=== PATIENT | female | born 1940 | race Caucasian/White ===

== ENCOUNTER 2019-08-30 08:51 | Emergency (ER) | payer MEDICARE, SELFPAY ==
--- NOTE | ~2019-08-30 | CT_ITS ---
EXAMINATION: CT abdomen pelvis w con DATE: 08/30/2019 10:01 INDICATION: Right lower quadrant abdominal pain. TECHNIQUE: Computed tomography (CT) of the abdomen and pelvis was performed with 100 mL Omnipaque 350 intravenous contrast. Automated exposure control and iterative reconstruction technique were employe d. The dose-length product was 710.46 mGy-cm. COMPARISON: None. FINDINGS: The visualized portions of the lung bases demonstrate mild atelectasis. No pleural effusion . The heart size is normal. No pericardial effusion. The liver is normal. There are changes of cholec ystectomy. Calcifications in the spleen are consistent with old granulomatous disease. The pancreas a nd adrenal glands are normal. There are cysts in the kidneys measuring up to 14 mm on the left. There are no dilated loops of bowel. The appendix is not visualized. There are changes of ventral hernia r epair. There are no pathologically enlarged lymph nodes. There is no free intraperitoneal fluid. Ther e is moderate lumbar spondylosis. IMPRESSION: 1. No etiology for the patient's symptoms. Reviewed, dictated and finalized at location A. UNICATION COORDINATOR
[2019-08-30 08:55] VITALS: BP 151/75; PULSE 91; RESP 18; TEMP 36.7; O2SAT 100
--- NOTE | 2019-08-30 09:05 | ED.ABDPAIN ---
HPI - Abdominal Pain General Chief Complaint: Abdominal Pain Stated Complaint: RLQ ABD PAIN [id number] Time Seen by Provider: 08/30/19 08:56 Source: patient and RN notes reviewed Mode of arrival: ambulatory Limitations: no limitations History of Present Illness HPI narrative: Pt is a 78 y/o female with a Hx of appendectomy, who presents to the ED with c/o constant RLQ pain starting 2 weeks ago. She notes that nothing in particular alleviates or aggravates her pain. Pt states that she was seen at an urgent care facility yesterday for her symptoms, and notes that she was found to have blood in her urine. She states that she was advised to come to the ED to receive a CT scan of her ABD/Pelvis. Pt notes that her pain was at a 7/10 last night. She currently denies any nausea, vomiting, diarrhea, fever, or chills. MD elicited complaint: abdominal pain Onset (ago): week(s) (2) Pain Consistency: constant Location: RLQ Pain scale (0-10): 7 Exacerbating factors: nothing Relieving factors: nothing Associated symptoms: hematuria Related Data Home Medications Medication Instructions Recorded Confirmed latanoprost 08/30/19 Allergies Allergy/AdvReac Type Severity Reaction Status Date / Time Cephalosporins Allergy Intermediate Unknown Verified 08/30/19 09:11 codeine Allergy Unknown Anaphylaxis Verified 08/30/19 09:11 Penicillins Allergy Unknown Hives Verified 08/30/19 09:11 CEFUROXIME AXETIL Allergy Unknown Unknown Uncoded 08/30/19 09:11 Review of Systems Review of Systems: All systems reviewed & are unremarkable except as noted in HPI and below Constitutional: Constitutional: Denies chills and Denies fever(s) Gastrointestinal: Gastrointestinal: Reports abdominal pain (RLQ pain), Denies diarrhea, Denies nausea and Denies vomiting Genitourinary: Genitourinary: Reports hematuria PMFSH Past Medical History Medical History Arthritis Back pain Basal cell carcinoma (BCC) Cataracts, bilateral Clavicle fracture Depression Right ovarian cyst Surgical History Surgical History Hx of appendectomy Hx of cataract surgery bilateral eyes Hx of ovarian cystectomy rt ovary Family History Family History (Updated 07/29/16 @ 23:19 by DOCTOR UNKNOWN) Mother Family history of malignant neoplasm Sibling Family history of diabetes mellitus in first degree relative Family history of heart disease in male family member before age 55 Patient's sister is Patient's brother is Father Family history of heart disease in male family member before age 55 Patient's father is Social History Social History Smoking status: Never smoker Alcohol intake: current Gender identity (if verbalized by the patient): Female Comments PCP is Dr. Howard. Exam Narrative: Exam Narrative: APPEARANCE: No acute distress, nontoxic, resting in bed EYES: EOMI HEENT: Normocephalic, atraumatic, OMM RESPIRATORY: No respiratory distress Clear to auscultation bilaterally with no rhonchi wheezing or rales. CARDIOVASCULAR: Regular rate and rhythm without murmurs rubs or gallops. ABDOMINAL: Soft, nontender, nondistended, no rebound or guarding MUSCULOSKELETAl: Moves all extremities. No clubbing, cyanosis or edema. NEURO: Awake and alert. Following commands, speech normal, no focal deficits SKIN:: Warm, dry. No rashes lesions or abrasions PSYCHIATRIC: Normal affect/mood, Course Course Emergency Course: . Repeat abdominal exam shows the patient's abdomen to be soft and nontender. Discussed with patient results of workup and diagnosis. Discussed need for follow-up with primary care physician, reasons to return to the emergency department in proper use of medication. Patient understands and agrees to current treatment plan Vital Signs Vital signs: Vital Signs Novelty
[2019-08-30 09:29] LABS: Basophils Absolute Auto 0.1 K/mm3 (0.0-0.1); Basophils Percent Auto 0.9 % (0.2-1.2); Eosinophils Absolute Auto 0.2 K/mm3 (0-0.3); Eosinophils Percent Auto 3.4 % (0-4.4); Hematocrit 39.5 % (37.0-47.0); Immature Granulocyte Absolute 0.02 K/mm3 (0.00-0.031); Immature Granulocyte Percent A 0.3 % (0-0.5); Lymphocytes Absolute Auto 1.84 K/mm3 (0.9-3.2); Lymphocytes Percent Auto 26.4 % (18.3-44.2); Mean Corpuscular HGB Conc 32.9 g/dl (32-36); Mean Corpuscular Hemoglobin 29.5 pg (26-34); Mean Corpuscular Volume 89.6 fl (80-100); Mean Platelet Volume 9.6 fl (7.4-10.4); Monocytes Absolute Auto 0.6 K/mm3 (0.1-0.6); Neutrophils Absolute Auto 4.2 K/mm3 (1.3-6.7); Platelet Count Result 256 k/mm3 (150-375); Red Blood Count 4.41 M/mm3 (4.2-5.4); Red Cell Distribution Width 12.3 % (11.5-14.5)
[2019-08-30 09:33] LABS: Add Urine Microscopic? YES; Appearance Urine Clear (Clear); Bacteria Urine Trace /hpf; Bilirubin Urine Negative (Negative); Blood Urine Negative (Negative); Color Urine Yellow (Yellow); Glucose Urine UA Negative (Negative); Ketones Urine Negative (Negative); Leukocyte Esterase Ur Trace LEU/UL (Negative); Mucus Urine Rare /lpf; Nitrate Urine Negative (Negative); Protein Urine Negative (Negative); RBC Urine 0-2 /hpf (0-2); Specific Grav Ur 1.014 (1.001-1.035); Squamous Epithelial Cell Urine Moderate /hpf (Few); Transitional Epi Cells Urine Rare /hpf (None Seen); Urobilinogen Urine Negative mg/dL (<2.0)
[2019-08-30 09:38] LABS: INR 0.9; Prothrombin Time 12.1 Seconds (11.1-14.7)
[2019-08-30 09:39] LABS: Partial Thromboplastin Time 28.6 SECONDS (22.3-36.8)
[2019-08-30 09:48] LABS: Alanine Aminotransferase 29 U/L (4-35); Alkaline Phosphatase 110 U/L (38-126); Aspartate Amino Transferase 26 U/L (14-36); Bilirubin,Total 0.2 mg/dL (0.2-1.3); Blood Urea Nitrogen 15 mg/dL (7-17); Carbon Dioxide 22 mmol/L (22-30); Chloride 102 mmol/L (98-107); Estimated CRCL calculation 61 ml/min; Estimated Glomerular Filt Rate > 60; Glucose 156 mg/dL (65-105); Lipase 65 U/L (23-300); Sodium 140 mmol/L (137-145)
[2019-08-30 09:53] LABS: Blood Urea Nitrogen 15 mg/dL (8-26); Estimated CRCL calculation 53 ml/min; Estimated Glomerular Filt Rate > 60
[2019-08-30 10:02] LABS: Potassium 3.9 mmol/L (3.4-5.0)
[2019-08-30 10:50] VITALS: BP 139/87; PULSE 80; RESP 20; O2SAT 98
== END 2019-08-30 10:55 | disposition home or self-care (01) ==
PROVIDERS: Emergency Provider Emergency Medicine; PCP Internal Medicine
DX: N39.0 Urinary tract infection, site not specified (principal); M19.90 Unspecified osteoarthritis, unspecified site; Z85.828 Personal history of other malignant neoplasm of skin; Z98.42 Cataract extraction status, left eye; Z98.41 Cataract extraction status, right eye
CPT/HCPCS: 36415; 74177; 80053; 81001; 83690; 85025; 85610; 85730; 99284; Q9967

== ENCOUNTER 2022-01-21 15:00 | Emergency (ER) | payer MEDICARE, SELFPAY ==
[2022-01-21 15:05] VITALS: BP 165/90; PULSE 82; RESP 16; TEMP 36.8; O2SAT 99
--- NOTE | 2022-01-21 15:11 | ED.EAR ---
HPI - Ear Problem General Chief complaint: Ear Stated complaint: Ears plugged up Time Seen by Provider: 01/21/22 15:11 Source: patient and RN notes reviewed History of Present Illness HPI Narrative: Patient is a 81-year-old female presents the urgent care with complaints of bilateral ear clogged. Patient states its worse on the right. Patient states its been ongoing since Wednesday after she had a COVID and a lot of nasal congestion. Patient has been using an old antibiotic drops to the ears that she got from the ENT. Currently denies of any other upper respiratory complaints, fever, nausea or vomiting. Denies of any ear pain. No acute distress noted. Patient aware of the plan of care Some parts of this dictation were generated by voice recognition software and may contain typographical and/or grammatical inaccuracies. Related Data Allergies Allergy/AdvReac Type Severity Reaction Status Date / Time Cephalosporins Allergy Intermediate Unknown Verified 01/21/22 15:14 codeine Allergy Unknown Anaphylaxis Verified 01/21/22 15:14 Penicillins Allergy Unknown Hives Verified 01/21/22 15:14 CEFUROXIME AXETIL Allergy Unknown Unknown Uncoded 08/30/19 09:11 Review of Systems Review of Systems: CONSTITUTIONAL: Denies fever, chills, or sweats. EYES: Denies visual changes, redness, or discharge. ENT: Denies rhinorrhea, congestion, sore throat. Reports of bilateral ears clogged CARDIOVASCULAR: Denies chest pain, palpitations, or edema. RESPIRATORY: Denies cough or dyspnea. GASTROINTESTINAL: Denies abdominal pain, nausea, vomiting, or diarrhea. GENITOURINARY: Denies dysuria or hematuria. SKIN: Denies rash or itching. MUSCULOSKELETAL: Denies back pain, joint pain, or myalgia. NEUROLOGIC: Denies headache, numbness, or weakness. All other systems reviewed are negative, except as documented in HPI. [facility] Past Medical History Medical History (Updated 01/21/22 @ 16:04 by BAYLEE Hoffman) Arthritis Back pain Basal cell carcinoma (BCC) Cataracts, bilateral Clavicle fracture Depression Right ovarian cyst Surgical History Surgical History Hx of appendectomy Hx of cataract surgery bilateral eyes Hx of ovarian cystectomy rt ovary Family History Family History (Updated 02/14/16 @ 23:19 by DOCTOR UNKNOWN) Mother Family history of malignant neoplasm Sibling Family history of diabetes mellitus in first degree relative Family history of heart disease in male family member before age 55 Patient's sister is Patient's brother is Father Family history of heart disease in male family member before age 55 Patient's father is Social History Social History Smoking status: Never smoker Alcohol intake: current Gender identity (if verbalized by the patient): Female Comments At the time of my signature, I reviewed and agree with the nursing past medical, surgical, social, and family history. There is no relevant family history pertinent to the patient complaint. Exam Narrative: GENERAL: This is a well-nourished, well-developed patient, in no apparent distress. HEAD: normocephalic, atraumatic. EYES: PERRL. Sclera clear/white. Vision is grossly intact. EARS: External ears normal, auditory canals clear and without drainage, unable to visualize bilateral TMs due to cerumen impaction. Hearing grossly intact. NOSE: External nose normal with no obvious nasal discharge, nares without redness, no rhinorrhea. THROAT: Mucous membranes moist NECK: Neck supple CARDIOVASCULAR: Regular rate and rhythm without murmurs, gallops, or rubs. RESPIRATORY: Clear to auscultation. Breath sounds equal bilaterally. No wheezes, rales, or rhonchi. SKIN: warm, intact with no suspicious lesions or rash, good texture and turgor. NEURO: awake, alert, and oriented to person, place and time. There were no obvio
== END 2022-01-21 16:06 | disposition home or self-care (01) ==
PROVIDERS: Emergency Provider Nurse Practitioner Family; PCP Internal Medicine
DX: H61.23 Impacted cerumen, bilateral (principal)
CPT/HCPCS: 69210; 99213; G0463

== ENCOUNTER 2022-04-01 11:23 | Day surgery (SDC) | payer MEDICARE, SELFPAY ==
[2022-03-27 10:06] VITALS: BMI 29.5
--- NOTE | 2022-03-31 07:39 | PM.HPGS ---
History of Present Illness History of Present Illness Consent: Risks, benefits, and alternatives have been discussed and questions answered. Patient agrees to proceed with procedure. Chief complaint: Dysphagia Narrative: Francis Carlos is a 81 year old female with dysphagia. She will feel as though something is caught in lower chest, usually after a meal. Review of Systems Review of Systems: All systems reviewed & are unremarkable except as noted in HPI and below PMFSH Past Medical History Medical History Arthritis Back pain Basal cell carcinoma (BCC) Cataracts, bilateral Clavicle fracture Depression Right ovarian cyst Surgical History Surgical History Hx of appendectomy Hx of cataract surgery bilateral eyes Hx of ovarian cystectomy rt ovary Family History Family History Mother Family history of malignant neoplasm Sibling Family history of diabetes mellitus in first degree relative Family history of heart disease in male family member before age 55 Patient's sister is Patient's brother is Father Family history of heart disease in male family member before age 55 Patient's father is Social History Social History Smoking status: Never smoker Alcohol intake: current Drinks per week: 1 Alcohol use details: OCCASIONAL GLASS OF WINE Substance use: never Substance use type: does not use Living arrangements: alone Gender identity (if verbalized by the patient): Female Spiritual care concerns: No Meds Home Medications and Allergies Home Medications Medication Instructions Recorded Confirmed Type latanoprost 0.005 % eye drops 1 drp EACH EYE HS 03/27/22 04/01/22 History Allergies Allergy/AdvReac Type Severity Reaction Status Date / Time codeine Allergy Unknown Anaphylaxis Verified 04/01/22 11:53 Penicillins Allergy Unknown Hives Verified 04/01/22 11:53 Exam Const: General: alert Orientation/consciousness: patient oriented x3 Resp: Auscultation: clear to auscultation bilaterally Cardio: Rhythm: regular rhythm GI: GI Palp: Yes Soft to palpation and No Tenderness to palpation present (GI) Neuro: General: patient oriented x3 Assessment and Plan Assessment and plan (1) Dysphagia: Code(s): R13.10 - Dysphagia, unspecified Status: Acute Assessment and Plan: EGD with possible biopsy or dilatation or cautery.
[2022-04-01 11:45] VITALS: BP 149/77; PULSE 88; RESP 20; TEMP 37.1; O2SAT 98
[2022-04-01] MEDS: LACTATED RINGERS 1,000 ML 150 ML IV CONT (11:50)
--- NOTE | 2022-04-01 12:35 | WPDANESEPPF ---
Anes - Initial Pre Proc Eval Procedure: Operation Date: 04/01/22 13:00 Proposed Procedures p Esophagogastroduodenoscopy - Talat Francis MD Date/Time: 04/01/22 12:35 Surgeon: Talat Francis MD Pre Op Diagnosis: Dysphagia Patient Data Age: 81 Gender: F Height: 1.52 m Weight: 68.5 kg Last Vital Signs Temp 37.1 C 04/01/22 11:45 Pulse 88 04/01/22 11:45 Resp 20 04/01/22 11:45 BP 149/77 H 04/01/22 11:45 Pulse Ox 98 04/01/22 11:45 O2 Del Method Room Air 04/01/22 11:45 Allergies Allergy/AdvReac Type Severity Reaction Status Date / Time codeine Allergy Unknown Anaphylaxis Verified 04/01/22 11:53 Penicillins Allergy Unknown Hives Verified 04/01/22 11:53 Home Medications Medication Instructions Recorded Confirmed Type latanoprost 0.005 % eye drops 1 drp EACH EYE HS 03/27/22 04/01/22 History Patient hx anesthesia problems: none Family hx anesthesia problems: none Results Review: All pre-operative results and documents have been reviewed as part of the pre-operative evaluation. [facility] Past Medical History Medical History Arthritis Back pain Basal cell carcinoma (BCC) Cataracts, bilateral Clavicle fracture Depression Right ovarian cyst Surgical History Surgical History Hx of appendectomy Hx of cataract surgery bilateral eyes Hx of ovarian cystectomy rt ovary Family History Family History Mother Family history of malignant neoplasm Sibling Family history of diabetes mellitus in first degree relative Family history of heart disease in male family member before age 55 Patient's sister is Patient's brother is Father Family history of heart disease in male family member before age 55 Patient's father is Social History Social History Smoking status: Never smoker Alcohol intake: current Drinks per week: 1 Alcohol use details: OCCASIONAL GLASS OF WINE Substance use: never Substance use type: does not use Living arrangements: alone Gender identity (if verbalized by the patient): Female Spiritual care concerns: No Anes - Eval Final PreProcedure Day of Procedure 04/01/22 12:35 Patient weight: overweight Heart: regular rate and rhythm Lungs: clear to auscultation Airway: Mallampati scale class II Neurological: alert and oriented Last oral intake: >/= 8 hours ASA classification: II Emergent: no Anesthetic plan: proceed Anesthesia type and monitoring: general GIVS and standard monitoring Results Review: All pre-operative results and documents have been reviewed as part of the pre-operative evaluation. Informed Consent: The patient's anesthetic plan and its attendant risks and benefits were discussed with the patient/family/POA. Questions were solicited and answers provided to the satisfaction of the patient/family/POA.
--- NOTE | 2022-04-01 13:15 | SUR.OPER ---
BALLOON DILATION TO ESOPHAGUS 12-15MM
[2022-04-01 13:16] VITALS: BP 127/64; PULSE 81; RESP 18; O2SAT 97
[2022-04-01 13:26] VITALS: BP 120/58; PULSE 76; RESP 20; O2SAT 97
--- NOTE | 2022-04-01 13:30 | WPDANESPN ---
Anes - Prog Note Post-Op Date/Time: 04/01/22 13:30 Cardiovascular status: normal Respiratory status: normal Airway patency: baseline Mental status: baseline Post-Op hydration status: normal Vital Signs: Last Vital Signs Temp 37.1 C 04/01/22 11:45 Pulse 88 04/01/22 11:45 Resp 20 04/01/22 11:45 BP 149/77 H 04/01/22 11:45 Pulse Ox 98 04/01/22 11:45 O2 Del Method Room Air 04/01/22 11:45 Pain Score (VAS): 0 Patient Feedback: Patient satisfied with anesthetic care.
[2022-04-01 13:36] VITALS: BP 144/80; PULSE 80; RESP 20; O2SAT 97
== END 2022-04-01 13:58 | disposition home or self-care (01) ==
PROVIDERS: PCP Internal Medicine; Visit Provider Internal Medicine Gastroenterology
PROC: 0DJ08ZZ Inspection of Upper Intestinal Tract, Via Natural or Artificial Opening Endoscopic (ICD-10-PCS; CPT 43235; principal; 2022-04-01 13:00)
DX: R13.10 Dysphagia, unspecified (principal)
CPT/HCPCS: 43249; 43239

== ENCOUNTER 2022-04-01 13:00 | Outpatient (NON) | payer MEDICARE, SELFPAY | END 2022-04-01 13:01 | disposition home or self-care (01) | LOC: ANHLAB 04-02 08:16 | PROVIDERS: PCP Internal Medicine; Visit Provider Internal Medicine Gastroenterology | DX: R13.10 Dysphagia, unspecified (principal) | CPT/HCPCS: 88305 ==

== ENCOUNTER 2022-07-17 18:03 | Emergency (ER) | payer MEDICARE, SELFPAY ==
[2022-07-17] VITALS (14 sets, daily range): BP systolic 131–160; BP diastolic 74–95; PULSE 77–102; RESP 12–24; TEMP 36.7; O2SAT 96–98
--- NOTE | ~2022-07-17 | XR_ITS ---
EXAMINATION: XR chest 2V DATE: 07/17/2022 18:36 INDICATION: Shortness of breath. TECHNIQUE: Frontal and lateral views of the chest were obtained. COMPARISON: Chest single view 03/27/2017, CT abdomen and pelvis 08/30/2019 FINDINGS: A calcified left lung nodule and calcified left hilar lymph nodes are consistent with old g ranulomatous disease. No pleural effusion or pneumothorax. The heart size is normal. There are surgic al clips in the abdomen. IMPRESSION: 1. No acute cardiopulmonary disease. Reviewed, dictated and finalized at location A. L CASINO FLOORPERSON
--- NOTE | 2022-07-17 18:09 | ECG_ITS ---
Measurements Intervals [place] Rate: 101 P: 43 MN: 138 QRS: -26 QRSD: 81 T: 47 QT: 345 QTc: 448 Interpretive Statements SINUS TACHYCARDIA LEFT AXIS DEVIATION [QRS AXIS < -20] ABNORMAL RHYTHM ECG NO PREVIOUS ECG AVAILABLE FOR COMPARISON Electronically Signed On 07-18-2022 9:43:14 LINEN TECH by John Reno M.D.
[2022-07-17 18:26] LABS: Basophils Absolute Auto 0.1 K/mm3 (0.0-0.1); Basophils Percent Auto 0.6 % (0.2-1.2); Eosinophils Absolute Auto 0.2 K/mm3 (0-0.3); Eosinophils Percent Auto 1.6 % (0-4.4); Hematocrit 41.7 % (37.0-47.0); Hemoglobin 13.7 g/dL (12.0-15.0); Immature Granulocyte Absolute 0.03 K/mm3 (0.00-0.031); Immature Granulocyte Percent A 0.3 % (0-0.5); Lymphocytes Absolute Auto 1.75 K/mm3 (0.9-3.2); Lymphocytes Percent Auto 18.9 % (18.3-44.2); Mean Corpuscular HGB Conc 32.9 g/dl (32-36); Mean Corpuscular Hemoglobin 30.2 pg (26-34); Mean Corpuscular Volume 92.1 fl (80-100); Mean Platelet Volume 9.6 fl (7.4-10.4); Monocytes Absolute Auto 0.8 K/mm3 (0.1-0.6); Monocytes Percent Auto 8.9 % (2.6-8.5); Neutrophils Absolute Auto 6.4 K/mm3 (1.3-6.7); Neutrophils Percent Auto 69.7 % (45.5-73.1); Platelet Count Result 278 k/mm3 (150-375); Red Blood Count 4.53 M/mm3 (4.2-5.4); Red Cell Distribution Width 12.7 % (11.5-14.5); White Blood Count 9.3 K/mm3 (4.5-10.0)
[2022-07-17 18:35] LABS: Alanine Aminotransferase 27 U/L (6-35); Albumin Level 4.3 g/dL (3.5-5.1); Alkaline Phosphatase 98 U/L (38-126); Anion Gap 6 mmol/L (8-16); Aspartate Amino Transferase 26 U/L (14-36); Bilirubin,Total 0.2 mg/dL (0.2-1.3); Blood Urea Nitrogen 17 mg/dL (7-17); Calcium 8.9 mg/dL (8.4-10.2); Carbon Dioxide 28 mmol/L (22-30); Chloride 103 mmol/L (98-107); Estimated CRCL calculation 46 ml/min; Estimated Glomerular Filt Rate > 60; Glucose 128 mg/dL (65-110); Sodium 137 mmol/L (137-145)
--- NOTE | 2022-07-17 19:59 | ED.SOB ---
HPI - SOB/Dyspnea General Chief Complaint: Shortness of Breath/Dyspnea Stated Complaint: SOB Time Seen by Provider: 07/17/22 19:24 Source: patient and RN notes reviewed Mode of arrival: ambulatory Limitations: no limitations History of Present Illness HPI Narrative: This is a 81 year old female who presents for evaluation of shortness of breath. Patient states [facility] when she felt short of breath. She also reports she was lightheaded for a short period. Her lightheadedness resolved . She was still short of breath when she checked out at [facility] so she went to urgent care. Urgent care referred patient to ER. Her shortness of breath has resolved but she wanted to make sure she is not having a heart problem. She denies heart disease or lung disease. She denies associated chest pain, leg swelling, nausea or vomiting. She reports intermittent mild dry cough for 1 week but she states it is not significant. She reports her in February so she may just be stressed. MD elicited complaint: shortness of breath Related Data Home Medications Medication Instructions Recorded Confirmed latanoprost 0.005 % eye drops 1 drp EACH EYE HS 03/27/22 04/02/22 Allergies Allergy/AdvReac Type Severity Reaction Status Date / Time codeine Allergy Unknown Anaphylaxis Verified 04/02/22 10:02 Penicillins Allergy Unknown Hives Verified 04/02/22 10:02 Review of Systems Constitutional: Constitutional: Denies weakness ENT: Reports nasal congestion (chronic) Cardiovascular: Cardiovascular: Denies syncope, Denies rapid heart rate, Denies irregular heart rhythm, Denies leg edema and Reports dyspnea Respiratory: Respiratory: Denies chest congestion, Reports cough, Denies hemoptysis, Denies excessive phlegm production and Reports dyspnea Gastrointestinal: Gastrointestinal: Denies abdominal pain, Denies hematochezia, Denies diarrhea and Denies vomiting Genitourinary: Genitourinary: Denies hematuria and Denies dysuria Musculoskeletal: Musculoskeletal: Denies joint swelling, Denies loss of height and Denies muscle weakness Neurologic: Denies syncope, Denies focal weakness and Denies weakness [facility] Past Medical History Medical History (Updated 07/18/22 @ 00:00 by Wiliam Hooks) Arthritis Back pain Basal cell carcinoma (BCC) Cataracts, bilateral Clavicle fracture Depression Right ovarian cyst Surgical History Surgical History Hx of appendectomy Hx of cataract surgery bilateral eyes Hx of ovarian cystectomy rt ovary Family History Family History Mother Family history of malignant neoplasm Sibling Family history of diabetes mellitus in first degree relative Family history of heart disease in male family member before age 55 Patient's sister is Patient's brother is Father Family history of heart disease in male family member before age 55 Patient's father is Hypertension Heart disease Social History Social History Smoking status: Never smoker Alcohol intake: current Drinks per week: 1 Alcohol use details: OCCASIONAL GLASS OF WINE Substance use: never Substance use type: does not use Gender identity (if verbalized by the patient): Female Spiritual care concerns: No Exam Const: General: healthy appearing and alert Nutritional Appearance: well nourished Orientation/consciousness: patient oriented x3 HENMT: Head: normal to inspection Face and sinus: normal facial exam Throat: posterior oropharynx normal Eyes: EOM: EOMs intact bilaterally Neck: Neck: normal visual inspection Chest: Chest palpation & inspection: normal inspection of the chest Resp: Effort & Inspection: normal respiratory effort Auscultation: clear to auscultation bilaterally Cardio:
[2022-07-17 20:24] LABS: Prothrombin Time 13.1 Seconds (11.1-14.7)
[2022-07-17 20:25] LABS: Partial Thromboplastin Time 27.8 SECONDS (22.3-36.8)
[2022-07-17 20:33] LABS: NT Pro B Type Natriuretic Pept 85 pg/mL (5-100); Troponin I < 0.012 ng/mL (0.000-0.034)
[2022-07-17 20:40] LABS: D Dimer 0.45 ug/mL (<0.48)
[2022-07-17 20:47] LABS: SARS-CoV-2 RNA PCR Negative
== END 2022-07-17 21:15 | disposition home or self-care (01) ==
PROVIDERS: Emergency Medicine; Emergency Provider General Practice; PCP Internal Medicine
DX: R06.00 Dyspnea, unspecified (principal); Z20.822 Contact with and (suspected) exposure to COVID-19; M19.90 Unspecified osteoarthritis, unspecified site; Z85.828 Personal history of other malignant neoplasm of skin; Z98.42 Cataract extraction status, left eye; Z98.41 Cataract extraction status, right eye; R00.0 Tachycardia, unspecified
CPT/HCPCS: 36415; 71046; 80053; 83880; 84484; 85025; 85380; 85610; 85730; 93005; 99284; U0003; U0005

== ENCOUNTER 2023-04-19 19:22 | Emergency (ER) | payer MEDICARE, SELFPAY ==
[2023-04-19 19:28] VITALS: BP 134/72; PULSE 99; RESP 20; TEMP 37.8; O2SAT 98
--- NOTE | 2023-04-19 19:35 | ED.URI ---
HPI - URI/Sore Throat General Chief Complaint: Upper Respiratory Infection Stated Complaint: Congestion nose and throat History of Present Illness HPI Narrative: PATIENT PRESENTS WITH A 1 DAY HISTORY OF NASAL CONGESTION RUNNY NOSE AND COUGH. NO FEVER NO SHORTNESS OF BREATH NO CHEST PAIN. PATIENT REPORTS GENERALIZED BODY ACHES AND MALAISE. PATIENT IS ON CLINDAMYCIN FOR HER TOOTH INFECTION AND HAS BEEN TAKING FOR THE PAST 3 DAYS. PATIENT REPORTS SHE RECENTLY RETURNED FROM A VACATION TO [place] AND HER SYMPTOMS STARTED SHORTLY AFTER. GOOD P.O. INTAKE NORMAL URINATION Related Data Home Medications Medication Instructions Recorded Confirmed No Home Medications 04/19/23 04/19/23 Allergies Allergy/AdvReac Type Severity Reaction Status Date / Time codeine Allergy Unknown Anaphylaxis Verified 04/19/23 19:33 Penicillins Allergy Unknown Hives Verified 04/19/23 19:33 Review of Systems Review of Systems: CONSTITUTIONAL: DENIES CHILLS, OR SWEATS. REPORTS FEVER AND GENERALIZED BODY ACHES EYES: DENIES VISUAL CHANGES, REDNESS, OR DISCHARGE. ENT: DENIES OTALGIA. REPORTS NASAL CONGESTION RUNNY NOSE AND SORE THROAT CARDIOVASCULAR: DENIES CHEST PAIN, PALPITATIONS, OR EDEMA. RESPIRATORY: DENIES DYSPNEA. REPORTS OCCASIONAL COUGH GASTROINTESTINAL: DENIES ABDOMINAL PAIN, NAUSEA, VOMITING, OR DIARRHEA. GENITOURINARY: DENIES DYSURIA OR HEMATURIA. SKIN: DENIES RASH OR ITCHING. MUSCULOSKELETAL: DENIES BACK PAIN, JOINT PAIN, OR MYALGIA. REPORTS GENERALIZED BODY ACHES NEUROLOGIC: DENIES HEADACHE, NUMBNESS, OR WEAKNESS. PSYCHIATRIC: DENIES ANXIETY OR DEPRESSION. [facility] Past Medical History Medical History (Updated 04/19/23 @ 19:41 by BAYLEE Lin) Arthritis Back pain Basal cell carcinoma (BCC) Cataracts, bilateral Clavicle fracture Depression Right ovarian cyst Surgical History Surgical History Hx of appendectomy Hx of cataract surgery bilateral eyes Hx of ovarian cystectomy rt ovary Family History Family History Mother Family history of malignant neoplasm Sibling Family history of diabetes mellitus in first degree relative Family history of heart disease in male family member before age 55 Patient's sister is Patient's brother is Father Family history of heart disease in male family member before age 55 Patient's father is Hypertension Heart disease Social History Social History Smoking status: Never smoker Alcohol intake: current Drinks per week: 1 Alcohol use details: OCCASIONAL GLASS OF WINE Substance use: never Substance use type: does not use Living arrangements: alone Gender identity (if verbalized by the patient): Female Spiritual care concerns: No Comments AT TIME OF SIGNATURE, AGREE WITH NURSING PAST MEDICAL, SURGICAL, SOCIAL AND FAMILY HISTORY. THERE IS NO RELEVANT FAMILY HISTORY PERTINENT TO THE PRESENTING COMPLAINT Exam Narrative: THE PATIENT IS A WELL-DEVELOPED, WELL-NOURISHED IN NO ACUTE DISTRESS. SKIN: SKIN IS WARM AND DRY WITHOUT ERYTHEMA, SWELLING OR EXUDATE. THERE IS GOOD TURGOR. NO TENTING. HEAD: ATRAUMATIC. NORMOCEPHALIC. NO TEMPORAL OR SCALP TENDERNESS. EYES: MOIST AND BRIGHT. SCLERA AND CONJUNCTIVAE NORMAL. NO DISCHARGE. PERRLA. EXTRAOCULAR MOTIONS INTACT. GROSS VISUAL ACUITY INTACT. EARS: PINNA IS NORMAL SHAPE AND CONTOUR. CLEAR EXTERNAL AUDITORY CANALS. TM PEARLY MILLER WITH GOOD CONE OF LIGHT, NO ERYTHEMA OR SUPPURATION. BILATERAL CERUMEN NOTED NO GROSS HEARING DEFICIT. NOSE: PINK, MOIST MUCOSA WITH GOOD AIR MOVEMENT. CLEAR RHINORRHEA WITHOUT NASAL FLARING. SEPTUM MIDLINE. MOUTH: MOIST MUCOUS MEMBRANES. THROAT; MILD ERYTHEMA NOTED TO POSTERIOR OROPHARYNX WITH MODERATE POSTNASAL DRAINAGE. WITHOUT EXUDATE OR ULCERATION.. UVULA MIDLINE. SE
== END 2023-04-19 19:43 | disposition home or self-care (01) ==
PROVIDERS: Emergency Provider Nurse Practitioner Family; PCP Internal Medicine
DX: U07.1 COVID-19 (principal); J06.9 Acute upper respiratory infection, unspecified; Z85.828 Personal history of other malignant neoplasm of skin
CPT/HCPCS: 87426; 99213; C9803; G0463

== ENCOUNTER 2023-05-05 00:59 | Emergency (ER) | payer MEDICARE, SELFPAY ==
--- NOTE | ~2023-05-05 | XR_ITS ---
Portable chest x-ray Comparison: 07/17/2022 Clinical History: Palpitations Findings: Lungs are clear, without focal consolidation or pleural effusion. Cardiomediastinal silho uette is stable. Bones and soft tissues are unremarkable. Impression: Clear lungs. Reviewed, dictated and finalized at location . Impression: Clear lungs.
[2023-05-05 01:05] VITALS: BP 134/89; PULSE 112; RESP 20; TEMP 37.1; O2SAT 96
--- NOTE | 2023-05-05 01:08 | ECG_ITS ---
Measurements Intervals [place] Rate: 109 P: 33 AK: 135 QRS: -30 QRSD: 79 T: 35 QT: 330 QTc: 445 Interpretive Statements SINUS TACHYCARDIA WITH OCCASIONAL VENTRICULAR PREMATURE COMPLEXES BORDERLINE LEFT AXIS DEVIATION [QRS AXIS < -20] ABNORMAL ECG COMPARED TO ECG 07/17/2022 18:14:53 NO SIGNIFICANT CHANGES Electronically Signed On 05-05-2023 9:03:47 CDT by Reinier Grimes M.D.
[2023-05-05 01:51] VITALS: PULSE 109
[2023-05-05 02:37] VITALS: BP 147/75; PULSE 101; RESP 19; O2SAT 97
[2023-05-05 03:39] LABS: Basophils Absolute Auto 0.1 K/mm3 (0.0-0.1); Basophils Percent Auto 0.6 % (0.2-1.2); Eosinophils Absolute Auto 0.1 K/mm3 (0-0.3); Eosinophils Percent Auto 1.4 % (0-4.4); Hematocrit 42.6 % (37.0-47.0); Hemoglobin 13.7 g/dL (12.0-15.0); Immature Granulocyte Absolute 0.05 K/mm3 (0.00-0.031); Immature Granulocyte Percent A 0.5 % (0-0.5); Lymphocytes Absolute Auto 2.11 K/mm3 (0.9-3.2); Lymphocytes Percent Auto 22.5 % (18.3-44.2); Mean Corpuscular HGB Conc 32.2 g/dl (32-36); Mean Corpuscular Hemoglobin 29.5 pg (26-34); Mean Corpuscular Volume 91.6 fl (80-100); Mean Platelet Volume 9.7 fl (7.4-10.4); Monocytes Absolute Auto 0.9 K/mm3 (0.1-0.6); Monocytes Percent Auto 9.7 % (2.6-8.5); Neutrophils Absolute Auto 6.1 K/mm3 (1.3-6.7); Neutrophils Percent Auto 65.3 % (45.5-73.1); Platelet Count Result 301 k/mm3 (150-375); Red Blood Count 4.65 M/mm3 (4.2-5.4); Red Cell Distribution Width 12.8 % (11.5-14.5); White Blood Count 9.4 K/mm3 (4.5-10.0)
[2023-05-05 03:48] LABS: Alanine Aminotransferase 46 U/L (6-35); Albumin Level 4.3 g/dL (3.5-5.1); Alkaline Phosphatase 97 U/L (38-126); Anion Gap 9 mmol/L (8-16); Aspartate Amino Transferase 29 U/L (14-36); Bilirubin,Total 0.7 mg/dL (0.2-1.3); Blood Urea Nitrogen 23 mg/dL (7-17); Calcium 9.1 mg/dL (8.4-10.2); Carbon Dioxide 24 mmol/L (22-30); Chloride 104 mmol/L (98-107); Estimated CRCL calculation 51 ml/min; Estimated Glomerular Filt Rate > 60; Glucose 127 mg/dL (65-110); Potassium 4.1 mmol/L (3.4-5.0); Sodium 137 mmol/L (137-145)
[2023-05-05 04:00] VITALS: BP 157/87; PULSE 99; RESP 24; O2SAT 99
[2023-05-05 04:00] LABS: Troponin I < 0.012 ng/mL (0.000-0.034)
--- NOTE | 2023-05-05 04:52 | ED.ARRPALP ---
HPI - Arrhythmia/Palpitations General Chief Complaint: Arrhythmia/Palpitations Stated Complaint: palpaTIONS Time Seen by Provider: 05/05/23 02:47 Source: patient and other (friend) Limitations: no limitations History of Present Illness HPI narrative: This is an 82 yo female who presents with complaint of palpitations beginning at 7pm. She ate dinner and then noticed the sensation in her chest. She deneis any pain or pressure associated with it. It lasted a few hours and then resolved and has not recurred but she wanted to be evalauted given she is to fly out to [place] tomorrow which has also been causing her some stress. She notes that she has previously been told she has atrial fibrillation but doesn't usually know when she is/isn't in the rhythm. Does not follow with a helper electrical. No nausea/vomiting, diaphoreis. Her PCP manages her condition which was determined while wearing a Holter/event monitor previously during which time she was noted to be in Afib but asympatomtic at the time. She is on Elliquis for anticoagulation, last dose yesterday. No abdominal pain or diarrhea. No cough or fever though she did recently recover from COVID. Related Data Home Medications Medication Instructions Recorded Confirmed No Home Medications 04/19/23 04/19/23 Allergies Allergy/AdvReac Type Severity Reaction Status Date / Time codeine Allergy Unknown Anaphylaxis Verified 04/19/23 19:33 Penicillins Allergy Unknown Hives Verified 04/19/23 19:33 [facility] Past Medical History Medical History Arthritis Atrial fibrillation Back pain Basal cell carcinoma (BCC) Cataracts, bilateral Clavicle fracture COVID Depression Right ovarian cyst Surgical History Surgical History Hx of appendectomy Hx of cataract surgery bilateral eyes Hx of ovarian cystectomy rt ovary Family History Family History Mother Family history of malignant neoplasm Sibling Family history of diabetes mellitus in first degree relative Family history of heart disease in male family member before age 55 Patient's sister is Patient's brother is Father Family history of heart disease in male family member before age 55 Patient's father is Hypertension Heart disease Social History Social History Smoking status: Never smoker Alcohol intake: current Drinks per week: 1 Alcohol use details: OCCASIONAL GLASS OF WINE Substance use: never Substance use type: does not use Living arrangements: alone Gender identity (if verbalized by the patient): Female Spiritual care concerns: No Exam Const: General: healthy appearing, no acute distress and alert; No confusion, diaphoretic or ill appearing Nutritional Appearance: well nourished Orientation/consciousness: patient oriented x3 Limitations: no limitations HENMT: Head: normal to inspection Eyes: Conjunctivae: conjunctivae normal Other: Gross auditory acuity intact Neck: Neck: normal visual inspection Resp: Effort & Inspection: normal respiratory effort and no use of accessory muscles Auscultation: clear to auscultation bilaterally, no crackles and no wheezes Cardio: Rate: tachycardic Rhythm: regular rhythm Heart sounds: no murmurs Other: 2+ radial pulses GI: Inspection: non-distended Skin: General skin exam: normal color and no jaundice Wounds: wound noted Neuro: General: patient oriented x3 Extrem: General: normal to inspection Psych: Mental Status: mental status grossly normal Affect: normal affect and No Sad affect present Attitude: cooperative Course Vital Signs Vital signs: Vital Signs Temperature 98.8 F 05/05/23 01:05 Pulse Rate 112 H 05/05/23 01:05 Respiratory Rate 20 05/05
[2023-05-05 04:59] VITALS: BP 128/88; PULSE 112; RESP 22; O2SAT 98
== END 2023-05-05 05:00 | disposition home or self-care (01) ==
PROVIDERS: Emergency Provider Student in an Organized Health Care Education/Training Program; PCP Internal Medicine
DX: R00.2 Palpitations (principal); I48.91 Unspecified atrial fibrillation; Z85.828 Personal history of other malignant neoplasm of skin
CPT/HCPCS: 36415; 71045; 80053; 84484; 85025; 93005; 99284

== ENCOUNTER 2024-02-21 11:01 | Emergency (ER) | payer MEDICARE, SELFPAY ==
--- NOTE | ~2024-02-21 | XR_ITS ---
Clinical Indication: Shortness of breath PA and lateral views of the chest: Comparison: 05/05/2023 Findings: The lungs are clear, without evidence of focal consolidation or pleural effusion. Cardiome diastinal silhouette is within normal limits. Bones and soft tissues are unremarkable. Impression: Normal chest. Reviewed, dictated and finalized at location . Impression: Normal chest.
[2024-02-21 11:03] VITALS: BP 171/107; PULSE 125; RESP 16; O2SAT 98
--- NOTE | 2024-02-21 11:12 | ECG_ITS ---
Test Date: 2024-02-21 11:17:00 Measurements Intervals [place] Rate: 135 P: 0 [place]: 0 QRS: -23 QRSD: 82 T: 16 QT: 296 QTc: 445 Interpretive Statements SINUS RHYTHM ALTERNATES WITH BURSTS OF SVT, PROBABLY ATRIAL FLUTTER BORDERLINE LEFT AXIS DEVIATION [QRS AXIS < -20] MINIMAL ST DEPRESSION [0.025+ mV ST DEPRESSION] ABNORMAL RHYTHM ECG No previous ECG available for comparison Electronically Signed On 02-21-2024 17:12:58 CDT by John Reno M.D.
[2024-02-21 11:20] VITALS: PULSE 133; O2SAT 98
[2024-02-21 11:24] VITALS: BP 161/99; PULSE 113; RESP 16; O2SAT 97; O2SAT 98
[2024-02-21 11:35] LABS: Basophils Percent Auto 0.6 % (0.2-1.2); Eosinophils Absolute Auto 0.1 K/mm3 (0-0.3); Hematocrit 40.4 % (37.0-47.0); Hemoglobin 13.5 g/dL (12.0-15.0); Immature Granulocyte Absolute 0.02 K/mm3 (0.00-0.031); Immature Granulocyte Percent A 0.3 % (0-0.5); Lymphocytes Absolute Auto 1.45 K/mm3 (0.9-3.2); Lymphocytes Percent Auto 22.3 % (18.3-44.2); Mean Corpuscular HGB Conc 33.4 g/dl (32-36); Mean Corpuscular Hemoglobin 30.7 pg (26-34); Mean Corpuscular Volume 91.8 fl (80-100); Mean Platelet Volume 10.4 fl (7.4-10.4); Monocytes Absolute Auto 0.7 K/mm3 (0.1-0.6); Monocytes Percent Auto 10.4 % (2.6-8.5); Neutrophils Absolute Auto 4.2 K/mm3 (1.3-6.7); Neutrophils Percent Auto 64.4 % (45.5-73.1); Platelet Count Result 241 k/mm3 (150-375); Red Cell Distribution Width 12.6 % (11.5-14.5); White Blood Count 6.5 K/mm3 (4.5-10.0)
[2024-02-21 11:51] VITALS: PULSE 103
[2024-02-21] MEDS: METOPROLOL TARTRATE INJ 5 MG/5 ML VIAL IV PUSH (11:51)
--- NOTE | 2024-02-21 12:01 | ECG_ITS ---
Test Date: 2024-02-21 12:08:38 Measurements Intervals [place] Rate: 76 P: 21 [place]: 148 QRS: -13 QRSD: 81 T: 15 QT: 377 QTc: 425 Interpretive Statements SINUS RHYTHM NORMAL ELECTROCARDIOGRAM Compared to ECG 02/21/2024 11:17:00 Atrial flutter no longer present ST (T wave) deviation no longer present Electronically Signed On 02-21-2024 17:14:28 CDT by John Reno M.D.
[2024-02-21 12:22] VITALS: BP 148/60; PULSE 76; RESP 16; O2SAT 96
[2024-02-21 12:43] LABS: Alanine Aminotransferase 35 U/L (6-35); Albumin Level 4.3 g/dL (3.5-5.1); Alkaline Phosphatase 97 U/L (38-126); Anion Gap 12 mmol/L (4-12); Aspartate Amino Transferase 36 U/L (14-36); Bilirubin,Total 0.5 mg/dL (0.2-1.3); Blood Urea Nitrogen 16 mg/dL (7-17); Calcium 9.4 mg/dL (8.4-10.2); Carbon Dioxide 22 mmol/L (22-30); Chloride 103 mmol/L (98-107); Estimated CRCL calculation 61 ml/min; Estimated Glomerular Filt Rate > 60; Glucose 133 mg/dL (65-110); Potassium 4.2 mmol/L (3.4-5.0); Sodium 137 mmol/L (137-145)
--- NOTE | 2024-02-21 12:49 | ED.GENADULT ---
HPI - General Adult General Chief complaint: Shortness of Breath/Dyspnea Stated complaint: SOB Time Seen by Provider: 02/21/24 11:23 History of Present Illness HPI narrative: 83-year-old female presenting to the emergency department for evaluation for exertional shortness of breath that occurred this morning after she took the garbage out. Patient states that she does typically get easily affected by the heat. Patient states the garbage can was relatively heavy. Patient states she had no chest pain chest tightness or chest pressure with this but does had an uneasy feeling. Patient does have a history of paroxysmal AFib but is not typically aware that she is having rapid heart rate. Patient called EMS for the symptoms and was found to be in AFib with RVR. Related Data Home Medications Medication Instructions Recorded Confirmed No Home Medications 04/19/23 04/19/23 Allergies Allergy/AdvReac Type Severity Reaction Status Date / Time codeine Allergy Unknown Anaphylaxis Verified 02/21/24 11:25 Penicillins Allergy Unknown Hives Verified 02/21/24 11:25 Review of Systems Review of Systems: All systems reviewed & are unremarkable except as noted in HPI and below PMFSH Past Medical History Medical History Arthritis Atrial fibrillation Back pain Basal cell carcinoma (BCC) Cataracts, bilateral Clavicle fracture COVID Depression Right ovarian cyst Surgical History Surgical History Hx of appendectomy Hx of cataract surgery bilateral eyes Hx of ovarian cystectomy rt ovary Family History Family History Mother Family history of malignant neoplasm Sibling Family history of diabetes mellitus in first degree relative Family history of heart disease in male family member before age 55 Patient's sister is Patient's brother is Father Family history of heart disease in male family member before age 55 Patient's father is Hypertension Heart disease Social History Social History Smoking status: Never smoker Alcohol intake: current Drinks per week: 1 Alcohol use details: OCCASIONAL GLASS OF WINE Substance use: never Substance use type: does not use Living arrangements: alone Gender identity (if verbalized by the patient): Female Spiritual care concerns: No Exam Narrative: APPEARANCE: Well appearing, no pain, no distress, well-nourished. HEAD: normocephalic, atraumatic. EYES: PERRLA/EOMI, conjunctivae clear. NOSE: Normal no drainage EARS:TMS clear with good light reflex. THROAT: Pharynx clear, no exudate. NECK: Supple. No adenopathy, no masses. RESPIRATORY: Airway patent, respirations nonlabored. Clear to auscultation bilaterally, no rales, rhonchi, wheezing. CARDIOVASCULAR: Regular rate and rhythm without murmurs rubs or gallops. ABDOMINAL: Soft, nontender, nondistended, normal bowel sounds MUSCULOSKELETAL: Moves all extremities. Strength/ROM intact, No edema, No calf tenderness. NEURO: Alert. Cranial nerves II through XII intact. Grossly intact SKIN: Warm, dry. Normal Color Course Vital Signs Vital signs: Vital Signs Pulse Rate 125 H 02/21/24 11:03 Respiratory Rate 16 02/21/24 11:03 Blood Pressure 171/107 H 02/21/24 11:03 Pulse Oximetry 98 02/21/24 11:03 Oxygen Delivery Room Air 02/21/24 11:03 Pulse Rate 76 02/21/24 12:56 Respiratory Rate 20 02/21/24 12:56 Blood Pressure 143/86 H 02/21/24 12:56 Pulse Oximetry 98 02/21/24 12:56 Oxygen Delivery Room Air 02/21/24 11:24 Medical Decision Making [facility] Narrative Medical decision making narrative: 83-year-old female history of paroxysmal AFib presented the ED and AFib with RVR. Patient does take metoprolol. Patient was
[2024-02-21 12:56] VITALS: BP 143/86; PULSE 76; RESP 20; O2SAT 98
[2024-02-21 13:06] LABS: Magnesium 2.2 mg/dL (1.6-2.3)
== END 2024-02-21 13:41 | disposition home or self-care (01) ==
PROVIDERS: Emergency Provider Emergency Medicine; PCP Internal Medicine
DX: I48.0 Paroxysmal atrial fibrillation (principal); M19.90 Unspecified osteoarthritis, unspecified site; F32.A Depression, unspecified; Z85.828 Personal history of other malignant neoplasm of skin
CPT/HCPCS: 36415; 71046; 80053; 83735; 85025; 93005; 96374; 99284

== ENCOUNTER 2024-03-06 22:15 | Emergency (ER) | payer MEDICARE, SELFPAY ==
--- NOTE | ~2024-03-06 | XR_ITS ---
EXAMINATION: XR chest 1V portable Exam Date/Time: 03/06/2024 22:50 CDT HISTORY: afib Comparison: 02/21/2024. RESULT: Lines, tubes, and devices: None. Lungs and pleura: Mild diffuse reticular opacities. Cardiomediastinal silhouette: Stable. Other: No acute osseous or upper abdominal finding. IMPRESSION: Mild interstitial edema. Reviewed, dictated and finalized at location K. IMPRESSION: Mild interstitial edema.
--- NOTE | 2024-03-06 22:26 | ECG_ITS ---
Test Date: 2024-03-06 22:33:22 Measurements Intervals [place] Rate: 145 P: 0 [place]: 0 QRS: -5 QRSD: 101 T: 49 QT: 304 QTc: 474 Interpretive Statements ATRIAL FIBRILLATION WITH RAPID VENTRICULAR RESPONSE WITH ABERRANT CONDUCTION OR VENTRICULAR PREMATURE COMPLEXES MODERATE ST DEPRESSION [0.05+ mV ST DEPRESSION] Compared to ECG 02/21/2024 12:08:38 ATRIAL FIBRILLATION WITH RVR NOW PRESENT Electronically Signed On 03-07-2024 10:21:35 CDT by Barron Anderson M.D.
[2024-03-06 22:27] VITALS: BP 187/79; PULSE 120; RESP 20; TEMP 36.7; O2SAT 95
[2024-03-06 22:35] VITALS: PULSE 138
[2024-03-06 22:36] VITALS: O2SAT 95
[2024-03-06 22:44] LABS: Basophils Absolute Auto 0.1 K/mm3 (0.0-0.1); Basophils Percent Auto 0.6 % (0.2-1.2); Eosinophils Absolute Auto 0.1 K/mm3 (0-0.3); Eosinophils Percent Auto 1.2 % (0-4.4); Hematocrit 38.9 % (37.0-47.0); Hemoglobin 12.9 g/dL (12.0-15.0); Immature Granulocyte Absolute 0.04 K/mm3 (0.00-0.031); Immature Granulocyte Percent A 0.4 % (0-0.5); Lymphocytes Absolute Auto 2.29 K/mm3 (0.9-3.2); Lymphocytes Percent Auto 21.3 % (18.3-44.2); Mean Corpuscular HGB Conc 33.2 g/dl (32-36); Mean Corpuscular Hemoglobin 30.4 pg (26-34); Mean Corpuscular Volume 91.7 fl (80-100); Mean Platelet Volume 10.2 fl (7.4-10.4); Monocytes Absolute Auto 0.9 K/mm3 (0.1-0.6); Monocytes Percent Auto 8.6 % (2.6-8.5); Neutrophils Absolute Auto 7.3 K/mm3 (1.3-6.7); Neutrophils Percent Auto 67.9 % (45.5-73.1); Platelet Count Result 230 k/mm3 (150-375); Red Blood Count 4.24 M/mm3 (4.2-5.4); Red Cell Distribution Width 12.7 % (11.5-14.5); White Blood Count 10.8 K/mm3 (4.5-10.0)
[2024-03-06 22:54] LABS: Partial Thromboplastin Time 27.8 Seconds (22.3-36.8); Prothrombin Time 13.7 Seconds (11.1-14.7)
[2024-03-06] MEDS: dilTIAZem HCl INJ 25 MG/5 ML VIAL 10 MG IV PUSH (22:57)
[2024-03-06 23:03] LABS: Alanine Aminotransferase 37 U/L (6-35); Albumin Level 3.9 g/dL (3.5-5.1); Alkaline Phosphatase 100 U/L (38-126); Anion Gap 11 mmol/L (4-12); Aspartate Amino Transferase 31 U/L (14-36); Bilirubin,Total 0.4 mg/dL (0.2-1.3); Blood Urea Nitrogen 14 mg/dL (7-17); Calcium 8.9 mg/dL (8.4-10.2); Carbon Dioxide 24 mmol/L (22-30); Chloride 102 mmol/L (98-107); Estimated CRCL calculation 50 ml/min; Estimated Glomerular Filt Rate > 60; Glucose 148 mg/dL (65-110); Lipase 75 U/L (23-300); Potassium 3.6 mmol/L (3.4-5.0); Sodium 137 mmol/L (137-145)
--- NOTE | 2024-03-06 23:07 | ECG_ITS ---
Test Date: 2024-03-06 23:09:16 Measurements Intervals [place] Rate: 89 P: 9 [place]: 143 QRS: -18 QRSD: 81 T: 14 QT: 360 QTc: 438 Interpretive Statements SINUS RHYTHM WITH OCCASIONAL VENTRICULAR PREMATURE COMPLEXES Compared to ECG 03/06/2024 22:33:22 SINUS RHYTHM NOW PRESENT Electronically Signed On 03-07-2024 10:22:12 CDT by Barron Anderson M.D.
[2024-03-06 23:08] LABS: Troponin I < 0.012 ng/mL (0.000-0.034)
--- NOTE | 2024-03-06 23:11 | PC.NURSE ---
EDP Dr. Garrett PIERCE 10mg IVP cardizem for afib RVR. Pt HR 138 prior to administration. This RN administered medication, pt now 89 NSR.
[2024-03-06 23:12] VITALS: PULSE 89
--- NOTE | 2024-03-06 23:53 | ED.GENADULT ---
HPI - General Adult General Chief complaint: Arrhythmia/Palpitations Stated complaint: AFIB History of Present Illness HPI narrative: This is an 83-year-old female with history of paroxysmal AFib on Eliquis and metoprolol presenting for AFib. Patient was watching TV when she started to feel different. She then checked her pulse and it was rapid. She is not having any chest pain difficulty breathing or lightheadedness. She came to the ED for evaluation. Related Data Home Medications Medication Instructions Recorded Confirmed No Home Medications 04/19/23 04/19/23 Allergies Allergy/AdvReac Type Severity Reaction Status Date / Time codeine Allergy Unknown Anaphylaxis Verified 03/06/24 22:35 Penicillins Allergy Unknown Hives Verified 03/06/24 22:35 [facility] Past Medical History Medical History Arthritis Atrial fibrillation Back pain Basal cell carcinoma (BCC) Cataracts, bilateral Clavicle fracture COVID Depression Right ovarian cyst Surgical History Surgical History Hx of appendectomy Hx of cataract surgery bilateral eyes Hx of ovarian cystectomy rt ovary Family History Family History Mother Family history of malignant neoplasm Sibling Family history of diabetes mellitus in first degree relative Family history of heart disease in male family member before age 55 Patient's sister is Patient's brother is Father Family history of heart disease in male family member before age 55 Patient's father is Hypertension Heart disease Social History Social History Smoking status: Never smoker Alcohol intake: current Drinks per week: 1 Alcohol use details: OCCASIONAL GLASS OF WINE Substance use: never Substance use type: does not use Living arrangements: alone Gender identity (if verbalized by the patient): Female Spiritual care concerns: No Exam Narrative: Exam was after she received 10 of mill g of diltiazem and had converted to normal sinus rhythm APPEARANCE: No apparent distress. Head: atraumatic. EYES: EOMI, NOSE: Atraumatic NECK: Trachea midline RESPIRATORY: No increased rate of breathing clear to auscultation CARDIOVASCULAR: RRR, no peripheral edema ABDOMINAL: Non-distended MUSCULOSKELETAl: No obvious deformities NEURO: Alert. Moving 4/4 extremities SKIN:: Warm, dry. Normal color PSYCHIATRIC: Normal affect Course Vital Signs Vital signs: Vital Signs Temperature 98.1 F 03/06/24 22:27 Pulse Rate 120 H 03/06/24 22:27 Respiratory Rate 20 03/06/24 22:27 Blood Pressure 187/79 H 03/06/24 22:27 Pulse Oximetry 95 03/06/24 22:27 Oxygen Delivery Room Air 03/06/24 22:27 Temperature 98.1 F 03/06/24 22:27 Pulse Rate 89 03/06/24 23:12 Respiratory Rate 20 03/06/24 22:27 Blood Pressure 187/79 H 03/06/24 22:27 Pulse Oximetry 95 03/06/24 22:36 Oxygen Delivery Room Air 03/06/24 22:36 Medical Decision Making MDM Narrative Medical decision making narrative: -Course: 83-year-old female presenting in AFib RVR. Received 10 mg of diltiazem converted to normal sinus rhythm. She is on appropriate medications including Eliquis. Patient will be discharged follow-up with her hospital pharmacy technician. Given return precautions. Patient instructed to take an extra dose of metoprolol if she goes in AFib again. -DDX includes but is not limited to: AFib with RVR, SVT -Co-morbidities complicating care: Paroxysmal AFib -Independent interpretation of studies: Independent EKG interpretation: Rhythm AFib, Rate []145, [place] -[normal], [place] -none, QRS [narrow], QTC [normal], T waves -[negative for concerning inversions], ST Segments - [Negative for concerning elevations] Final interpretations
[2024-03-07 00:15] VITALS: BP 143/85; PULSE 86; RESP 16; TEMP 36.7; O2SAT 97
== END 2024-03-07 00:16 | disposition home or self-care (01) ==
PROVIDERS: Emergency Provider Emergency Medicine; PCP Internal Medicine
DX: I48.91 Unspecified atrial fibrillation (principal); Z79.01 Long term (current) use of anticoagulants; M19.90 Unspecified osteoarthritis, unspecified site; F32.A Depression, unspecified
CPT/HCPCS: 36415; 71045; 80053; 83690; 84484; 85025; 85610; 85730; 93005; 96374; 99284

== ENCOUNTER 2025-03-29 23:14 | Emergency (ER) | payer MEDICARE, SELFPAY ==
--- NOTE | ~2025-03-29 | XR_ITS ---
Examination: XR chest 2V Clinical History: palpitations Comparison: 03/06/2024 Technique: PA and Lateral Findings: Heart size upper limit of normal. No focal airspace consolidation or pleural effusion. Mild peribronchial thickening. No acute bony abnormality. IMPRESSION: 1. No acute cardiopulmonary findings. Reviewed, dictated and finalized at location R.
[2025-03-29 23:12] VITALS: BP 114/73; PULSE 129; RESP 20; TEMP 36.7; O2SAT 97
--- NOTE | 2025-03-29 23:17 | ECG_ITS ---
Test Date: 2025-03-29 23:19:22 Measurements Intervals [place] Rate: 100 P: 0 [place]: 0 QRS: -24 QRSD: 79 T: 22 QT: 318 QTc: 412 Interpretive Statements ATRIAL FIBRILLATION WITH RAPID VENTRICULAR RESPONSE THE LATTER HALF OF THE EKG SHOWS SINUS RHYTHM BORDERLINE LEFT AXIS DEVIATION [QRS AXIS < -20] ABNORMAL RHYTHM ECG Electronically Signed On 03-30-2025 15:27:02 CDT by Hossein Villela M.D.
[2025-03-29 23:20] VITALS: PULSE 138
--- NOTE | 2025-03-30 00:06 | ECG_ITS ---
Test Date: 2025-03-30 00:13:41 Measurements Intervals [place] Rate: 82 P: 37 [place]: 152 QRS: -17 QRSD: 78 T: 9 QT: 363 QTc: 426 Interpretive Statements SINUS RHYTHM Compared to ECG 03/29/2025 23:19:22 Atrial fibrillation no longer present Electronically Signed On 03-30-2025 15:29:22 CDT by Hossein Villela M.D.
--- NOTE | 2025-03-30 00:06 | PC.NURSE ---
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 EDP MEERA Bhatti made aware and order held in SEP. Repeat EKG ordered and completed.
--- NOTE | 2025-03-30 00:11 | ED_ITS ---
HPI - Arrhythmia/Palpitations General Chief Complaint: Arrhythmia/Palpitations Stated Complaint: RAPID HR-UNABLE TO SLEEP Time Seen by Provider: 03/29/25 23:41 Source: patient Mode of arrival: EMS Limitations: no limitations History of Present Illness HPI narrative: This is a 84 year old female that presents to the ER for heart racing. Reports history of atrial fibrillation. [place] a little sluggish today, had some chest discomfort earlier. Thought she was in afib. She feels better now, has concerted while in the ER. Related Data Home Medications ?Medication ?Instructions ?Recorded ?Confirmed ?Last Taken ?Type No Home Medications 04/19/23 04/19/23 U nknown History Allergies Allergy/AdvReac Type Severity Reaction Status Date / Time codeine Allergy Unknown Anaphylaxis Verified 03/29/25 23:27 Penicillins Allergy Unknown Hives Verified 03/29/25 23:27 Review of Systems 2 Review of Systems: All systems reviewed & are unremarkable except as noted in HPI and below PMFSH Past Medical History Medical History Arthritis Atrial fibrillation Back pain Basal cell carcinoma (BCC) Cataracts, bilateral Clavicle fracture COVID Depression Right ovarian cyst Surgical History Surgical History Hx of ovarian cystectomy rt ovary Hx of appendectomy Hx of cataract surgery bilateral eyes Family History Family History Mother Family history of malignant neoplasm Sibling Family history of diabetes mellitus in first degree relative Family history of heart disease in male family member before age 55 Patient's sister is Patient's brother is Father Family history of heart disease in male family member before age 55 Patient's father is Hypertension Heart disease Social History Social History Smoking status: Never smoker Alcohol intake: current Drinks per week: 1 Alcohol use details: OCCASIONAL GLASS OF WINE Substance use: never Substance use type: does not use Living arrangements: alone Gender identity (if verbalized by the patient): Female Spiritual care concerns: No Exam 2 Narrative: GENERAL: Well-appearing, well-nourished, and in no acute distress. HEAD: Normocephalic, atraumatic. EYES: EOMI. NECK: Supple. No adenopathy or masses. No JVD CHEST: Clear to auscultation. No respiratory distress. No wheezes rales or rhonchi HEART: Regular rate and rhythm. No murmur heard. Normal peripheral pulses. EXTREMITIES: Normal range of motion. No edema. SKIN: Warm, dry, no rash. NEURO: No focal deficits. Alert and oriented x3. PSYCH: Normal mood and affect Course Course Emergency Course: patient has converted to sinus rhythm without intervention Vital Signs Vital signs: Vital Signs Temperature 98.1 F 03/29/25 23:12 Pulse Rate 129 H 03/29/25 23:12 Respiratory Rate 20 03/29/25 23:12 Blood Pressure 114/73 03/29/25 23:12 Pulse Oximetry 97 03/29/25 23:12 Oxygen Delivery Room Air 03/29/25 23:12 Temperature 98.1 F 03/29/25 23:12 Pulse Rate 82 03/30/25 01:07 Respiratory Rate 14 03/30/25 01:07 Blood Pressure 113/67 03/30/25 01:07 Pulse Oximetry 100 03/30/25 01:07 Oxygen Delivery Room Air 03/29/25 23:12 MDM - Arrhythmia/Palpitations MDM Narrative Medical decision making narrative: Patient presents to the emergency department for atrial fibrillation. Noted to be in RVR upon arrival. Patient converted to normal sinus rhythm without intervention. Symptoms resolved. Patient does have history of paroxysmal atrial fibrillation. Cbc and metabolic panel without concerning findings. Baseline troponin negative. Chest x-ray without acute cardiopulmonary abnormality. Patient instructed to follow-up with her director of career resources. She was given warnings to return to the ER Differential Diagnosis Differential diagnosis: Likely palpitations, anxiety, sinus tachycardia, artial fibrillation and ventricular premature beats Lab Data Attestation: I reviewed the patient's lab results. 03/30/25 00:15 03/30/25 00:15 Labs: Lab Results 03/30/25 Range/Units 00:15 WBC 12.4 H (4.5-10.0) K/mm3 RBC 4.38 (4.2-5.4) M/mm3 Hgb 13.0 (12.0-15.0) g/dL Hct 40.1 (37.0-47.0) % MCV 91.6 (80-100) fl MCH 29.7 (26-34) pg MCHC 32.4 (32-36) g/dl RDW 12.7 (11.5-14.5) % Plt Count 278 (150-375) k/mm3 MPV 9.8 (7.4-10.4) fl Immature Gran % (Auto) 4.9 H (0-0.5) % Neut % (Auto) 58.3 (45.5-73.1) % Lymph % (Auto) 22.4 (18.3-44.2) % [place] % (Auto) 12.4 H (2.6-8.5) % Eos % (Auto) 1.4 (0-4.4) % Baso % (Auto) 0.6 (0.2-1.2) % Lymph # (Auto) 2.78 (0.9-3.2) K/mm3 [place] # (Auto) 1.5 H (0.1-0.6) K/mm3 Eos # (Auto) 0.2 (0-0.3) K/mm3 Baso # (Auto) 0.1 (0.0-0.1) K/mm3 Abs Immat Gran (auto) 0.61 H (0.00-0.031) K/mm3 Absolute Neuts (auto) 7.2 H (1.3-6.7) K/mm3 Absolute Nucleated RBC 0.000 (0.0-0.012) K/mm3 Nucleated RBC % 0.0 (0.0-0.2) % PT 13.2 (11.1-14.7) Seconds INR 1.0 APTT 27.3 (22.3-36.8) Seconds Sodium 136 L (137-145) mmol/L Potassium 4.3 (3.4-5.0) mmol/L Chloride 107 (98-107) mmol/L Carbon Dioxide 22 (22-30) mmol/L Anion Gap 7 (4-12) mmol/L BUN 25 H D (7-17) mg/dL Creatinine 0.80 (0.7-1.0) mg/dL Estim Creat Clear Calc 47 ml/min Estimated GFR > 60 (59 - ) Glucose 134 H (65-110) mg/dL Calcium 8.9 (8.4-10.2) mg/dL Magnesium 2.5 H (1.6-2.3) mg/dL Total Bilirubin 0.2 (0.2-1.3) mg/dL AST 35 (14-36) U/L ALT 37 H (6-35) U/L Alkaline Phosphatase 110 (38-126) U/L Troponin I < 0.012 (0.000-0.034) ng/mL Total Protein 6.9 (6.3-8.2) g/dL Albumin 3.8 (3.5-5.1) g/dL Imaging Data Radiologist's impression: Chest x-ray: No acute cardiopulmonary abnormality ECG Data EKG #1: ECG completion date: 03/29/25 EKG Interpretation: atrial fibrillation (With RVR) EKG #2: ECG completion date: 03/30/25 EKG Interpretation: normal rate, sinus rhythm, no ST changes and normal QT Critical Care Time Critical Care Time Critical Care Time: No Discharge Plan Discharge Clinical Impression: Atrial fibrillation with rapid ventricular response Patient Disposition: Home Condition: Improved Instructions: A-fib (Atrial Fibrillation) (ED) Additional Instructions: Return to the emergency department if you experience fever, chest pain, shortness of breath, you pass out, or any other symptoms that are concerning to you. Continue your home medications as prescribed Follow up with your director of career resources Patient Language: Turkish Prescriptions: No Action No Home Medications Follow-up/Referrals: Ronnie,MD John [Primary Care Provider]
[2025-03-30 00:21] LABS: Hematocrit 40.1 % (37.0-47.0); Hemoglobin 13.0 g/dL (12.0-15.0); Immature Granulocyte Percent A 4.9 % (0-0.5); Lymphocytes Absolute Auto 2.78 K/mm3 (0.9-3.2); Mean Corpuscular HGB Conc 32.4 g/dl (32-36); Mean Corpuscular Hemoglobin 29.7 pg (26-34); Mean Corpuscular Volume 91.6 fl (80-100); Nucleated Red Blood Cells Absolute Auto 0.000 K/mm3 (0.0-0.012); Nucleated Red Blood Cells Perc 0.0 % (0.0-0.2); Platelet Count Result 278 k/mm3 (150-375); Red Blood Count 4.38 M/mm3 (4.2-5.4); White Blood Count 12.4 K/mm3 (4.5-10.0)
[2025-03-30 00:33] LABS: INR 1.0; Partial Thromboplastin Time 27.3 Seconds (22.3-36.8); Prothrombin Time 13.2 Seconds (11.1-14.7)
[2025-03-30 00:34] LABS: Alanine Aminotransferase 37 U/L (6-35); Albumin Level 3.8 g/dL (3.5-5.1); Alkaline Phosphatase 110 U/L (38-126); Anion Gap 7 mmol/L (4-12); Aspartate Amino Transferase 35 U/L (14-36); Bilirubin,Total 0.2 mg/dL (0.2-1.3); Blood Urea Nitrogen 25 mg/dL (7-17); Calcium 8.9 mg/dL (8.4-10.2); Carbon Dioxide 22 mmol/L (22-30); Chloride 107 mmol/L (98-107); Estimated CRCL calculation 47 ml/min; Estimated Glomerular Filt Rate > 60; Glucose 134 mg/dL (65-110); Magnesium 2.5 mg/dL (1.6-2.3); Potassium 4.3 mmol/L (3.4-5.0); Sodium 136 mmol/L (137-145); Total Protein 6.9 g/dL (6.3-8.2)
[2025-03-30 00:43] VITALS: PULSE 83
[2025-03-30 00:45] LABS: Troponin I < 0.012 ng/mL (0.000-0.034)
[2025-03-30 01:07] VITALS: BP 113/67; PULSE 82; RESP 14; O2SAT 100
== END 2025-03-30 01:33 | disposition home or self-care (01) ==
PROVIDERS: Emergency Provider Physician Assistant; PCP Internal Medicine
DX: I48.20 Chronic atrial fibrillation, unspecified (principal); Z85.828 Personal history of other malignant neoplasm of skin
CPT/HCPCS: 36415; 71046; 80053; 83735; 84484; 85025; 85610; 85730; 93005; 99284; J1163